=== PATIENT | female | born 1995 | race African-American/Black ===

== ENCOUNTER → 2021-06-22 | Outpatient (REF) | payer OTHER ==
[2021-06-22 14:04] LABS: HEMATOCRIT 36.5 % (36.0-47.0); HEMOGLOBIN 12.2 g/dl (12.0-15.5); MEAN CORPUSCULAR HEMOGLOBIN 27.9 pg (27.0-33.0); MEAN CORPUSCULAR HGB CONC 33.4 g/dl (32.0-36.5); MEAN CORPUSCULAR VOLUME 83.3 fl (80.0-96.0); PLATELET COUNT, AUTOMATED 269 10^3/uL (150-450); RED BLOOD COUNT 4.38 10^6/uL (4.00-5.40); WHITE BLOOD COUNT 7.5 10^3/uL (4.0-10.0)
[2021-06-22 15:27] LABS: HCG, SERUM QUANTITATIVE 35693 MIU/ML; HEPATITIS B SURFACE ANTIGEN NEGATIVE (NEGATIVE); HEPATITIS C VIRUS ABY INDEX 0.1 INDEX (<0.8); HIV 1&2 SCREEN CENTAUR NEGATIVE (NEGATIVE)
== END ==
LOC: M LAB REF 12:35
PROVIDERS: ATTEND Obstetrics & Gynecology
DX: Z36.9 Encounter for antenatal screening, unspecified (principal); Z3A.00 Weeks of gestation of pregnancy not specified

== ENCOUNTER → 2021-08-10 | Outpatient (REF) | payer OTHER | LOC: M LAB REF 16:46 | PROVIDERS: ATTEND Obstetrics & Gynecology | DX: Z36.9 Encounter for antenatal screening, unspecified (principal) ==

== ENCOUNTER → 2021-09-30 | Outpatient (CLI) | payer OTHER | LOC: M WHC 12:32 | PROVIDERS: ATTEND Obstetrics & Gynecology | DX: Z34.82 Encounter for supervision of other normal pregnancy, second trimester (principal); Z3A.20 20 weeks gestation of pregnancy ==

== ENCOUNTER 2022-01-10 17:58 | Emergency (ER) | payer OTHER ==
[2022-01-10] MEDS ORDERED: PRENTAB9 PO (18:52)
[2022-01-11] MEDS ORDERED: ACET-683 PO (06:48)
[2022-01-11] MEDS ORDERED: ONDA-83 PO (06:48)
[2022-01-11] MEDS ORDERED: OSEL75CA PO (06:48)
== END 2022-01-10 18:43 | disposition admitted as inpatient to this hospital (09) ==
LOC: M ED 17:58
DX: R68.89 Other general symptoms and signs (principal); Z3A.35 35 weeks gestation of pregnancy

== ENCOUNTER 2022-01-10 18:29 | Outpatient (CLI) | payer OTHER ==
[~2022-01-10] VITALS: Ht 162.6 cm; Wt 83.1 kg
[2022-01-10 18:52] VITALS: BP 119/72
[2022-01-10] MEDS ORDERED: PRENTAB9 PO (18:52)
[2022-01-10] MEDS ORDERED: HOME MED LIST COMPLETE! XX SCH (18:55)
[2022-01-10] MEDS ORDERED: LACTATED RINGER'S 1000 ML IV ONE (19:45)
[2022-01-10] MEDS ORDERED: ONDANSETRON 4MG 2ML VIAL IV PRN (20:05)
[2022-01-10 20:37] LABS: HEMATOCRIT 29.9 % (36.0-47.0); HEMOGLOBIN 9.6 g/dl (12.0-15.5); MEAN CORPUSCULAR HEMOGLOBIN 26.7 pg (27.0-33.0); MEAN CORPUSCULAR HGB CONC 32.1 g/dl (32.0-36.5); MEAN CORPUSCULAR VOLUME 83.3 fl (80.0-96.0); PLATELET COUNT, AUTOMATED 208 10^3/uL (150-450); RED BLOOD COUNT 3.59 10^6/uL (4.00-5.40); WHITE BLOOD COUNT 7.5 10^3/uL (4.0-10.0)
[2022-01-10 20:46] LABS: ALBUMIN 2.9 G/DL (3.2-5.2); ALKALINE PHOSPHATASE 122 U/L (46-116); ALT/SGPT 13 U/L (7.0-40); AST/SGOT 19 U/L (<34); BILIRUBIN,TOTAL 0.4 MG/DL (0.3-1.2); BLOOD UREA NITROGEN < 5 MG/DL (9-23); CARBON DIOXIDE LEVEL 24 MMOL/L (20-31); CHLORIDE LEVEL 104 MMOL/L (98-107); GLOMERULAR FILTRATION RATE > 60.0 (>60); GLUCOSE, FASTING 68 MG/DL (60-100); SODIUM LEVEL 137 MMOL/L (136-145); TOTAL PROTEIN 6.6 G/DL (5.7-8.2)
[2022-01-10] MEDS ORDERED: OSELTAMIVIR PHOSPHATE 75 MG CAP (TAMIFLU) PO SCH (21:00)
[2022-01-10] MEDS ORDERED: IRON SUCROSE 100MG 5ML VIAL IV ONE (21:05)
[2022-01-10] MEDS ORDERED: LR 1,000 ML IV SCH (21:10)
[2022-01-10] MEDS ORDERED: metFORMIN (GLUCOPHAGE) 500MG TAB PO SCH (22:00)
[2022-01-10 22:08] LABS: FERRITIN 5.2 NG/ML (7.3-270.7)
[2022-01-10] MEDS ORDERED: IRON SUCROSE 500 MG in NS 250 ML IV ONE (23:00)
[2022-01-10] MEDS: ACETAMINOPHEN 500 MG TAB PO PRN (23:21)
[2022-01-11] MEDS: ACETAMINOPHEN 500 MG TAB PO PRN (06:31)
[2022-01-11] MEDS ORDERED: OSEL75CA PO (06:48)
[2022-01-11] MEDS ORDERED: ONDA-83 PO (06:48)
[2022-01-11] MEDS ORDERED: ACET-683 PO (06:48)
== END 2022-01-11 08:05 | disposition home or self-care (01) ==
LOC: M LDO 18:29
PROVIDERS: ATTEND Advanced Practice Midwife
DX: O99.513 Diseases of the respiratory system complicating pregnancy, third trimester (principal); J09.X3 Influenza due to identified novel influenza A virus with gastrointestinal manifestations; O99.013 Anemia complicating pregnancy, third trimester; D50.9 Iron deficiency anemia, unspecified; O09.33 Supervision of pregnancy with insufficient antenatal care, third trimester; Z3A.35 35 weeks gestation of pregnancy
CPT/HCPCS: 59025; 76815; 80053; 82728; 83020; 85027; 87081; 87486; 87581; 87633; 87798; 96360; 96361; 96365; 96366; 96374; G0378; G0463; J1756; J2405

== ENCOUNTER 2022-01-18 19:48 | Emergency (ER) | payer OTHER ==
[~2022-01-18] VITALS: Ht 162.6 cm; Wt 82.6 kg
[2022-01-18 19:48] VITALS: BP 130/62
[~2022-01-18 19:48] MED LIST: ACET-683 PO; ONDA-83 PO; OSEL75CA PO; PRENTAB9 PO
== END 2022-01-18 20:41 | disposition admitted as inpatient to this hospital (09) ==
LOC: M ED 19:48
DX: Z53.21 Procedure and treatment not carried out due to patient leaving prior to being seen by health care provider (principal)

== ENCOUNTER 2022-01-18 20:41 | Outpatient (CLI) | payer OTHER ==
[~2022-01-18] VITALS: Ht 162.6 cm; Wt 82.8 kg
[2022-01-18 20:58] VITALS: BP 119/61
[2022-01-18 21:55] VITALS: BP 116/78
== END 2022-01-18 21:51 | disposition home or self-care (01) ==
LOC: M LDO 20:41
PROVIDERS: ATTEND Obstetrics & Gynecology
DX: O26.893 Other specified pregnancy related conditions, third trimester (principal); R10.30 Lower abdominal pain, unspecified; R10.2 Pelvic and perineal pain; Z3A.36 36 weeks gestation of pregnancy
CPT/HCPCS: 59025; 81000; 81015; 87086; G0463

== ENCOUNTER 2022-02-05 03:36 | Emergency (ER) | payer OTHER ==
[~2022-02-05] VITALS: Ht 162.6 cm; Wt 79.8 kg
[2022-02-05 03:38] VITALS: BP 118/70
== END 2022-02-05 05:15 | disposition left against medical advice (07) ==
LOC: M ED 03:36
DX: Z53.21 Procedure and treatment not carried out due to patient leaving prior to being seen by health care provider (principal)

== ENCOUNTER 2022-04-30 17:27 | Emergency (ER) | payer OTHER ==
[~2022-04-30] VITALS: Ht 162.6 cm; Wt 84.1 kg
[2022-04-30] MEDS ORDERED: ONDANSETRON 4MG ORAL DISINTEGRATING TAB PO ONE (18:30)
[2022-04-30] MEDS ORDERED: IBUPROFEN 600MG TAB PO ONE (18:30)
[2022-04-30] MEDS ORDERED: ACETAMINOPHEN 325 MG TAB PO ONE (18:30)
[2022-04-30] MEDS ORDERED: ONDA4TAB6 PO (20:45)
[2022-04-30 21:01] VITALS: BP 116/60
== END 2022-04-30 21:05 | disposition home or self-care (01) ==
LOC: M ED 17:27
DX: U07.1 COVID-19 (principal)

== ENCOUNTER 2022-07-19 19:49 | Emergency (ER) | payer OTHER ==
[~2022-07-19] VITALS: Ht 162.6 cm; Wt 81.8 kg
[~2022-07-19 19:49] MED LIST changes: +ONDA4TAB6 PO
[2022-07-19 20:46] LABS: APPEARANCE, URINE HAZY (CLEAR); BACTERIA, URINE AUTO NEGATIVE (NEGATIVE); BILIRUBIN, URINE AUTO NEGATIVE (NEGATIVE); BLOOD, URINE BLOOD NEGATIVE (NEGATIVE); COLOR, URINE YELLOW (YELLOW); GLUCOSE, URINE (UA) AUTO NEGATIVE (NEGATIVE); KETONE, URINE AUTO NEGATIVE (NEGATIVE); LEUKOCYTE ESTERASE, URINE AUTO NEGATIVE (NEGATIVE); MUCUS, URINE SMALL (NEGATIVE); NITRITE, URINE AUTO NEGATIVE (NEGATIVE); PROTEIN, URINE AUTO 1+ mg/dL (NEGATIVE); RBC, URINE AUTO 0 /HPF (0-3); SPECIFIC GRAVITY URINE AUTO 1.021 (1.002-1.035); SQUAMOUS EPITHELIAL CELL UR AU 2 /HPF (0-6); UROBILINOGEN, URINE AUTO 0.2 mg/dL (0.0-2.0); WBC, URINE AUTO 3 /HPF (0-3)
[2022-07-19 21:21] LABS: HCG, SERUM QUALITATIVE POSITIVE (NEGATIVE)
[2022-07-19 22:58] LABS: BLOOD UREA NITROGEN 8 MG/DL (9-23); CALCIUM LEVEL 9.1 MG/DL (8.5-10.1); CARBON DIOXIDE LEVEL 23 MMOL/L (20-31); CHLORIDE LEVEL 104 MMOL/L (98-107); CREATININE FOR GFR 0.74 MG/DL (0.55-1.30); GLOMERULAR FILTRATION RATE > 60.0 (>60); GLUCOSE, FASTING 79 MG/DL (60-100); POTASSIUM SERUM 3.9 MMOL/L (3.5-5.1); SODIUM LEVEL 136 MMOL/L (136-145)
[2022-07-19 23:10] LABS: BASO % 0.3 % (0.0-1.0); EOS % 0.5 % (0.0-3.0); LYMPH # 2.8 10^3/uL (1.5-5.0); LYMPH % 31.6 % (24.0-44.0); MEAN CORPUSCULAR HEMOGLOBIN 27.5 pg (27.0-33.0); MEAN CORPUSCULAR HGB CONC 34.3 g/dl (32.0-36.5); MEAN CORPUSCULAR VOLUME 80.3 fl (80.0-96.0); MONO # 0.5 10^3/uL (0.0-0.8); MONO % 5.2 % (2.0-8.0); NEUTROPHILS # 5.5 10^3/uL (1.5-8.5); NEUTROPHILS % 62.2 % (36.0-66.0); PLATELET COUNT, AUTOMATED 300 10^3/uL (150-450); RED BLOOD COUNT 4.36 10^6/uL (4.00-5.40); WHITE BLOOD COUNT 8.8 10^3/uL (4.0-10.0)
[2022-07-20] MEDS ORDERED: NS 1,000 ML IV ONE (00:25)
[2022-07-20 00:43] LABS: MAGNESIUM LEVEL 1.9 MG/DL (1.8-2.4)
[2022-07-20 00:44] LABS: CPK CREATINE PHOSPHOKINASE 127 U/L (34-145)
[2022-07-20 02:29] VITALS: BP 123/76; TEMP 97.2; O2SAT 100
== END 2022-07-20 02:32 | disposition home or self-care (01) ==
LOC: M ED 19:49
DX: O26.891 Other specified pregnancy related conditions, first trimester (principal); R10.2 Pelvic and perineal pain; Z3A.09 9 weeks gestation of pregnancy; R25.2 Cramp and spasm

== ENCOUNTER → 2022-08-23 | Outpatient (CLI) | payer OTHER ==
[2022-08-23 13:44] LABS: HEMATOCRIT 31.8 % (36.0-47.0); HEMOGLOBIN 10.6 g/dl (12.0-15.5); MEAN CORPUSCULAR HGB CONC 33.3 g/dl (32.0-36.5); MEAN CORPUSCULAR VOLUME 83.9 fl (80.0-96.0); PLATELET COUNT, AUTOMATED 244 10^3/uL (150-450); RED BLOOD COUNT 3.79 10^6/uL (4.00-5.40); WHITE BLOOD COUNT 8.8 10^3/uL (4.0-10.0)
[2022-08-23 14:33] LABS: SICKLE CELL SCREEN POSITIVE (NEGATIVE)
[2022-08-23 14:35] LABS: HIV 1&2 SCREEN NEGATIVE (NEGATIVE)
[2022-08-23 14:43] LABS: HEPATITIS C VIRUS ABY INDEX 0.09 INDEX (<0.8)
[2022-08-23 15:06] LABS: GC DNA AMPLIFICATION NEGATIVE (NEGATIVE)
== END ==
LOC: M PLALAB 10:38
PROVIDERS: ATTEND Advanced Practice Midwife
DX: Z34.82 Encounter for supervision of other normal pregnancy, second trimester (principal)

== ENCOUNTER → 2022-08-23 | Outpatient (CLI) | payer OTHER | LOC: M WHC 10:17 | PROVIDERS: ATTEND Advanced Practice Midwife | DX: Z34.91 Encounter for supervision of normal pregnancy, unspecified, first trimester (principal); Z53.8 Procedure and treatment not carried out for other reasons ==

== ENCOUNTER 2022-09-02 10:53 | Emergency (ER) | payer OTHER ==
[~2022-09-02] VITALS: Ht 160 cm; Wt 82.3 kg
[2022-09-02] MEDS ORDERED: AUGMENTIN 875 MG TAB PO ONE (11:10)
[2022-09-02 11:37] LABS: BASO % 0.3 % (0.0-1.0); EOS # 0.1 10^3/uL (0.0-0.5); EOS % 0.6 % (0.0-3.0); HEMATOCRIT 31.7 % (36.0-47.0); HEMOGLOBIN 10.9 g/dl (12.0-15.5); LYMPH # 1.6 10^3/uL (1.5-5.0); LYMPH % 18.4 % (24.0-44.0); MEAN CORPUSCULAR HEMOGLOBIN 27.9 pg (27.0-33.0); MEAN CORPUSCULAR HGB CONC 34.4 g/dl (32.0-36.5); MEAN CORPUSCULAR VOLUME 81.3 fl (80.0-96.0); MONO # 0.5 10^3/uL (0.0-0.8); MONO % 5.8 % (2.0-8.0); NEUTROPHILS # 6.4 10^3/uL (1.5-8.5); NEUTROPHILS % 74.3 % (36.0-66.0); PLATELET COUNT, AUTOMATED 238 10^3/uL (150-450); WHITE BLOOD COUNT 8.6 10^3/uL (4.0-10.0)
[2022-09-02 12:01] LABS: BLOOD UREA NITROGEN 8 MG/DL (9-23); CALCIUM LEVEL 9.3 MG/DL (8.5-10.1); CARBON DIOXIDE LEVEL 22 MMOL/L (20-31); CHLORIDE LEVEL 105 MMOL/L (98-107); CREATININE FOR GFR 0.58 MG/DL (0.55-1.30); GLOMERULAR FILTRATION RATE > 60.0 (>60); GLUCOSE, FASTING 71 MG/DL (60-100); SODIUM LEVEL 137 MMOL/L (136-145)
[2022-09-02] MEDS ORDERED: AMOX875T2 PO (13:12)
[2022-09-02 13:28] VITALS: BP 124/73; TEMP 98; O2SAT 99
[2022-09-02] MEDS ORDERED: ONDANSETRON 4MG ORAL DISINTEGRATING TAB PO ONE (13:35)
[2022-09-02 13:49] LABS: HCG, SERUM QUANTITATIVE 39925.5 MIU/ML (<4.2)
== END 2022-09-02 13:28 | disposition home or self-care (01) ==
LOC: M ED 10:53
DX: O9A.212 Injury, poisoning and certain other consequences of external causes complicating pregnancy, second trimester (principal); S51.832A Puncture wound without foreign body of left forearm, initial encounter; W54.0XXA Bitten by dog, initial encounter; Y92.009 Unspecified place in unspecified non-institutional (private) residence as the place of occurrence of the external cause; Y93.89 Activity, other specified; Y99.8 Other external cause status; Z3A.16 16 weeks gestation of pregnancy; Z79.899 Other long term (current) drug therapy

== ENCOUNTER 2022-09-16 11:04 | Emergency (ER) | payer OTHER ==
[~2022-09-16] VITALS: Ht 160 cm; Wt 84.8 kg
[~2022-09-16 11:04] MED LIST changes: +AMOX875T2 PO
[2022-09-16] MEDS ORDERED: MULTTAB20 PO (11:19)
[2022-09-16 14:50] VITALS: BP 123/72; TEMP 97.8; O2SAT 98
== END 2022-09-16 14:51 | disposition home or self-care (01) ==
LOC: M ED 11:04
DX: O34.82 Maternal care for other abnormalities of pelvic organs, second trimester (principal); N83.209 Unspecified ovarian cyst, unspecified side; O9A.212 Injury, poisoning and certain other consequences of external causes complicating pregnancy, second trimester; Z3A.17 17 weeks gestation of pregnancy; S39.013A Strain of muscle, fascia and tendon of pelvis, initial encounter; X58.XXXA Exposure to other specified factors, initial encounter; Y92.89 Other specified places as the place of occurrence of the external cause; Y93.89 Activity, other specified; Y99.8 Other external cause status

== ENCOUNTER → 2022-10-05 | Outpatient (CLI) | payer OTHER ==
[~2022-10-05] MED LIST changes: +MULTTAB20 PO
== END ==
LOC: M WHC 14:43
PROVIDERS: ATTEND Advanced Practice Midwife
DX: Z34.91 Encounter for supervision of normal pregnancy, unspecified, first trimester (principal)

== ENCOUNTER → 2022-11-21 | Outpatient (CLI) | payer OTHER ==
[2022-11-21 16:48] LABS: HEMATOCRIT 29.8 % (36.0-47.0); HEMOGLOBIN 9.8 g/dl (12.0-15.5); MEAN CORPUSCULAR HEMOGLOBIN 28.3 pg (27.0-33.0); MEAN CORPUSCULAR HGB CONC 32.9 g/dl (32.0-36.5); MEAN CORPUSCULAR VOLUME 86.1 fl (80.0-96.0); PLATELET COUNT, AUTOMATED 195 10^3/uL (150-450); RED BLOOD COUNT 3.46 10^6/uL (4.00-5.40)
[2022-11-21 18:40] LABS: GC DNA AMPLIFICATION NEGATIVE (NEGATIVE)
== END ==
LOC: M PLALAB 12:22
PROVIDERS: ATTEND Advanced Practice Midwife
DX: Z34.92 Encounter for supervision of normal pregnancy, unspecified, second trimester (principal)

== ENCOUNTER 2022-12-16 15:43 | Outpatient (CLI) | payer OTHER ==
[~2022-12-16] VITALS: Ht 162.6 cm; Wt 90.0 kg
[2022-12-16 16:07] VITALS: BP 124/81
[2022-12-16] MEDS ORDERED: ONDANSETRON 4MG 2ML VIAL IV PRN (16:20)
[2022-12-16] MEDS ORDERED: LR 1,000 ML IV ONE (16:20)
[2022-12-16] MEDS ORDERED: HOME MED LIST COMPLETE! XX SCH (16:50)
[2022-12-16 17:24] LABS: HEMATOCRIT 33.2 % (36.0-47.0); HEMOGLOBIN 10.9 g/dl (12.0-15.5); MEAN CORPUSCULAR HGB CONC 32.8 g/dl (32.0-36.5); MEAN CORPUSCULAR VOLUME 85.3 fl (80.0-96.0); PLATELET COUNT, AUTOMATED 183 10^3/uL (150-450); RED BLOOD COUNT 3.89 10^6/uL (4.00-5.40); WHITE BLOOD COUNT 7.2 10^3/uL (4.0-10.0)
[2022-12-16 17:29] LABS: ALBUMIN 2.9 G/DL (3.2-5.2); ALKALINE PHOSPHATASE 96 U/L (46-116); ALT/SGPT 14 U/L (7.0-40); AST/SGOT 15 U/L (<34); BILIRUBIN,TOTAL 0.7 MG/DL (0.3-1.2); BLOOD UREA NITROGEN 6 MG/DL (9-23); CALCIUM LEVEL 9.4 MG/DL (8.5-10.1); CARBON DIOXIDE LEVEL 24 MMOL/L (20-31); CHLORIDE LEVEL 103 MMOL/L (98-107); CREATININE FOR GFR 0.58 MG/DL (0.55-1.30); GLOMERULAR FILTRATION RATE > 60.0 (>60); GLUCOSE, FASTING 69 MG/DL (60-100); POTASSIUM SERUM 4.1 MMOL/L (3.5-5.1); SODIUM LEVEL 136 MMOL/L (136-145); TOTAL PROTEIN 6.8 G/DL (5.7-8.2)
[2022-12-16 17:34] VITALS: BP 126/61
== END 2022-12-16 20:29 | disposition home or self-care (01) ==
LOC: M LDO 15:43
PROVIDERS: ATTEND Advanced Practice Midwife
DX: O26.893 Other specified pregnancy related conditions, third trimester (principal); R11.0 Nausea; O09.293 Supervision of pregnancy with other poor reproductive or obstetric history, third trimester; R19.7 Diarrhea, unspecified; Z3A.30 30 weeks gestation of pregnancy
CPT/HCPCS: 36415; 59025; 80053; 85027; 96360; 96361; 96374; G0463; J2405

== ENCOUNTER → 2022-12-28 | Outpatient (CLI) | payer OTHER | LOC: M RAD 12:51 | PROVIDERS: ATTEND Advanced Practice Midwife | DX: O09.293 Supervision of pregnancy with other poor reproductive or obstetric history, third trimester (principal); Z3A.32 32 weeks gestation of pregnancy ==

== ENCOUNTER → 2023-01-23 | Outpatient (REF) | payer OTHER | LOC: M PLALAB 15:21 | PROVIDERS: ATTEND Obstetrics & Gynecology | DX: O09.293 Supervision of pregnancy with other poor reproductive or obstetric history, third trimester (principal) | CPT/HCPCS: 59025; 76815; 87081; G0463 ==

== ENCOUNTER 2023-02-06 19:27 | Inpatient (IN) | payer OTHER ==
[~2023-02-06] VITALS: Ht 165.1 cm; Wt 91.9 kg
[2023-02-06 19:49] VITALS: BP 132/83; O2SAT 98
[2023-02-06] MEDS ORDERED: METHYLERGONOVINE MALEATE 0.2MG/ML 1ML VIAL IM PRN (19:50)
[2023-02-06] MEDS ORDERED: OXYTOCIN INJ 10UNITS/ML 1ML VIAL IM PRN (19:50)
[2023-02-06] MEDS ORDERED: TRANEXAMIC ACID INJection 1,000 MG in NS 100 ML IV PRN (19:50)
[2023-02-06] MEDS ORDERED: HOME MED LIST COMPLETE! XX SCH (19:50)
[2023-02-06] MEDS ORDERED: LIDOCAINE 1% MDV 20ML VIAL INFIL PRN (19:50)
[2023-02-06] MEDS ORDERED: OXYTOCIN DRIP 30 UNITS in IV 1 EA IV PRN ×4 (19:50)
[2023-02-06] MEDS ORDERED: CARBOPROST TROMETHAMINE 250 MCG/ML AMP IM PRN (19:50)
[2023-02-06] MEDS: miSOPROStol 50MCG 1/2 TABLET PO SCH (20:20)
[2023-02-06 20:24] LABS: HEMATOCRIT 30.5 % (36.0-47.0); HEMOGLOBIN 10.3 g/dl (12.0-15.5); MEAN CORPUSCULAR HEMOGLOBIN 27.8 pg (27.0-33.0); MEAN CORPUSCULAR HGB CONC 33.8 g/dl (32.0-36.5); MEAN CORPUSCULAR VOLUME 82.2 fl (80.0-96.0); PLATELET COUNT, AUTOMATED 199 10^3/uL (150-450); RED BLOOD COUNT 3.71 10^6/uL (4.00-5.40); WHITE BLOOD COUNT 6.8 10^3/uL (4.0-10.0)
[2023-02-06 20:44] VITALS: BP 137/77
[2023-02-06 21:25] VITALS: BP 116/75
[2023-02-06 22:23] VITALS: BP 117/77
[2023-02-06 23:02] VITALS: BP 132/72
[2023-02-06 23:59] VITALS: BP 110/58
[2023-02-07] VITALS (44 sets, daily range): BP systolic 97–157; BP diastolic 49–89; O2SAT 90–100
[2023-02-07] MEDS: miSOPROStol 50MCG 1/2 TABLET PO SCH ×2 (00:20→03:50)
[2023-02-07] MEDS: LR 1,000 ML IV SCH ×3 (05:50→18:08)
[2023-02-07] MEDS ORDERED: LR 1,000 ML IV SCH (06:55)
[2023-02-07] MEDS ORDERED: OXYTOCIN DRIP 30 UNITS in IV 1 EA IV SCH ×2 (06:55→20:30)
[2023-02-07] MEDS ORDERED: miSOPROStol 50MCG 1/2 TABLET PO ONE (07:55)
[2023-02-07] MEDS ORDERED: REFLB XX ONE (15:36)
[2023-02-07] MEDS ORDERED: FENTANYL 2MCG/ML ROPIVACAINE 0.2% IN 0.9% NACL 100ML IVBAG As Ordered ONE (15:37)
[2023-02-07] MEDS ORDERED: EPIDURAL/PCA KEYS XX PRN (16:20)
[2023-02-07] MEDS ORDERED: LR 500 ML IV PRN (16:20)
[2023-02-07] MEDS ORDERED: FENTANYL/ROPIVACAINE/NACL BAG 100 ML EPIDURAL SCH (16:20)
[2023-02-07] MEDS ORDERED: diphenhydrAMINE 50MG/ML VIAL IV PRN (16:20)
[2023-02-07] MEDS ORDERED: NALOXONE INJ 0.4MG/1ML VIAL IV PRN (16:20)
[2023-02-07] MEDS ORDERED: ONDANSETRON 4MG 2ML VIAL IV PRN (16:20)
[2023-02-07] MEDS: ePHEDrine SULFATE 25 MG/5 ML(5MG/ML) SYRINGE IVP PRN ×2 (18:27→18:49)
[2023-02-07] MEDS ORDERED: DIBUCAINE 1% OINTMENT 30GM TOP PRN (20:30)
[2023-02-07] MEDS ORDERED: DOCUSATE SODIUM 100MG CAPSULE PO PRN (20:30)
[2023-02-07] MEDS ORDERED: RHOGAM 300MCG (1500IU) INJ IM SCH (20:30)
[2023-02-07] MEDS ORDERED: METHYLERGONOVINE MALEATE 0.2 MG TAB PO PRN (20:30)
[2023-02-08] MEDS: IBUPROFEN 600MG TAB PO PRN (00:43)
[2023-02-08 06:00] VITALS: BP 128/63; O2SAT 100
[2023-02-08 06:57] LABS: HEMATOCRIT 27.5 % (36.0-47.0); HEMOGLOBIN 8.9 g/dl (12.0-15.5); MEAN CORPUSCULAR HGB CONC 32.4 g/dl (32.0-36.5); MEAN CORPUSCULAR VOLUME 83.3 fl (80.0-96.0); PLATELET COUNT, AUTOMATED 148 10^3/uL (150-450); WHITE BLOOD COUNT 8.2 10^3/uL (4.0-10.0)
[2023-02-08] MEDS: PRENATAL VITAMINS CHEWABLE TABLET PO SCH (08:16)
[2023-02-08] MEDS ORDERED: INFLUENZA QUADRIVALENT PF VACCINE 0.5ML SYRINGE IM.IMMUN ONE (14:00)
[2023-02-08 18:00] VITALS: BP 119/69; O2SAT 98
[2023-02-08] MEDS: ACETAMINOPHEN 500 MG TAB PO PRN (22:56)
[2023-02-09] MEDS: IBUPROFEN 600MG TAB PO PRN (03:15)
[2023-02-09] MEDS: ACETAMINOPHEN 500 MG TAB PO PRN (08:04)
[2023-02-09] MEDS: PRENATAL VITAMINS CHEWABLE TABLET PO SCH (08:04)
[2023-02-09] MEDS ORDERED: MEASLES,MUMPS,RUBELLA VACCINE INJ (MMR-II) SC.IMMUN ONE (09:00)
[2023-02-09] MEDS ORDERED: IBUP-1022 PO (09:26)
[2023-02-09] MEDS ORDERED: ACET-683 PO (09:26)
== END 2023-02-09 12:05 | disposition home or self-care (01) | DRG 807 ==
LOC: M LDI 19:27 → M OBS 02-07 22:23
PROVIDERS: ADMIT Advanced Practice Midwife; ATTEND Obstetrics & Gynecology
PROC: 3E0P7GC Introduction of Other Therapeutic Substance into Female Reproductive, Via Natural or Artificial Opening (ICD-10-PCS; 2023-02-06)
PROC: 10E0XZZ Delivery of Products of Conception, External Approach (ICD-10-PCS; principal; 2023-02-07)
DX: O69.1XX0 Labor and delivery complicated by cord around neck, with compression, not applicable or unspecified (principal); Z37.0 Single live birth; Z3A.38 38 weeks gestation of pregnancy

== ENCOUNTER 2024-03-25 09:44 | Emergency (ER) | payer OTHER, SELFPAY ==
[~2024-03-25] VITALS: Ht 162.6 cm; Wt 93.7 kg
[~2024-03-25 09:44] MED LIST changes: +IBUP-1022 PO; +ONDA-282 PO; -ONDA4TAB6 PO
[2024-03-25 09:57] VITALS: BP 137/94; TEMP 98.6; O2SAT 100
[2024-03-25] MEDS ORDERED: AMOX875T2 PO (12:49)
[2024-03-25] MEDS ORDERED: NAPR-837 PO (12:49)
== END 2024-03-25 13:09 | disposition home or self-care (01) ==
LOC: M ED 09:44
DX: K04.7 Periapical abscess without sinus (principal); Z79.1 Long term (current) use of non-steroidal anti-inflammatories (NSAID); Z79.2 Long term (current) use of antibiotics; Z79.899 Other long term (current) drug therapy

== ENCOUNTER 2024-03-27 00:15 | Emergency (ER) | payer BC, SELFPAY ==
[~2024-03-27] VITALS: Ht 162.6 cm; Wt 93.3 kg
[~2024-03-27 00:15] MED LIST changes: +NAPR-837 PO
[2024-03-27] MEDS ORDERED: ISOVUE-370 76% 100ML VIAL As Ordered ONE (09:03)
[2024-03-27 09:05] LABS: BASO % 0.2 % (0.0-1.0); EOS # 0.1 10^3/uL (0.0-0.5); EOS % 1.3 % (0.0-3.0); HEMATOCRIT 34.6 % (36.0-47.0); HEMOGLOBIN 11.3 g/dl (12.0-15.5); LYMPH # 2.8 10^3/uL (1.5-5.0); LYMPH % 33.2 % (24.0-44.0); MEAN CORPUSCULAR HEMOGLOBIN 26.2 pg (27.0-33.0); MEAN CORPUSCULAR HGB CONC 32.7 g/dl (32.0-36.5); MEAN CORPUSCULAR VOLUME 80.1 fl (80.0-96.0); MONO # 0.5 10^3/uL (0.0-0.8); MONO % 5.4 % (2.0-8.0); NEUTROPHILS % 59.4 % (36.0-66.0); PLATELET COUNT, AUTOMATED 343 10^3/uL (150-450); RED BLOOD COUNT 4.32 10^6/uL (4.00-5.40); WHITE BLOOD COUNT 8.4 10^3/uL (4.0-10.0)
[2024-03-27 09:20] LABS: ERYTHROCYTE SEDIMENTATION RATE 88 mm/hr (0-20)
[2024-03-27] MEDS ORDERED: PIPERACILLIN/TAZOBACTAM SOD 4.5 GM in DEXTROSE 5% (D5W) ADV/MINI-BAG 50 ML IV ONE (10:00)
[2024-03-27] MEDS: dexAMETHasone 20MG/5ML VIAL IV ONE (10:27)
[2024-03-27] MEDS: AMPICILLIN SOD/SULBACTAM SOD 3 GM in DEXTROSE 5% (D5W) MINI-BAG PLU 100 ML IV ONE (10:28)
[2024-03-27 11:35] VITALS: BP 118/71; TEMP 98.7; O2SAT 99
== END 2024-03-27 11:43 | disposition home or self-care (01) ==
LOC: M ED 00:15
DX: K04.7 Periapical abscess without sinus (principal); M86.9 Osteomyelitis, unspecified; Z79.1 Long term (current) use of non-steroidal anti-inflammatories (NSAID); Z79.2 Long term (current) use of antibiotics; Z79.899 Other long term (current) drug therapy
CPT/HCPCS: 70491; 80047; 85025; 85652; 86140; 96365; 96375; 99284; J0295; J1100; Q9967